=== PATIENT | male | born 1955 | race Caucasian/White ===

== ENCOUNTER 2021-10-09 12:22 | Outpatient (CLI) | payer OTHER, MEDICARE, SELFPAY | END 2021-10-09 12:23 | disposition home or self-care (01) | LOC: CHSLAB 12:28 | PROVIDERS: PCP Family Medicine; Visit Provider Specialist | DX: L57.0 Actinic keratosis (principal) | CPT/HCPCS: 88305 ==

== ENCOUNTER → 2023-01-21 07:36 | Outpatient (CLI) | payer OTHER, MEDICARE, SELFPAY ==
--- NOTE | ~2023-01-21 | MR_ITS ---
EXAMINATION: MR lumbar spine wo con DATE: 01/21/2023 08:25 INDICATION: Low back pain TECHNIQUE: Magnetic resonance imaging (MRI) of the lumbar spine was performed without intravenous con trast. Sequences included sagittal T2-weighted FSE, sagittal T2-weighted FS FSE, sagittal T1-weighted FSE, and axial T2-weighted FSE. COMPARISON: None FINDINGS: Measures string of the normal lumbar lordosis. Alignment is otherwise normal. Vertebral body heights are normal. Mild fibrovascular degenerative endplate changes along the anterior superior endplate of T12. A couple T1 hyperintense hemangiomas at L2. Marrow signal is otherwise normal. Mild disc height loss at L4-L5. Annular fissures at L4-L5 and L5-S1. The conus medullaris terminates at L1. There is n ormal signal in the caudal spinal cord. Paravertebral soft tissues are unremarkable. The following di sc levels are specifically discussed: T12-L1: The disc does not extend beyond the endplate margin. There is mild bilateral facet joint oste oarthritis. There is no neural foraminal stenosis. There is no central canal stenosis. L1-L2: Disc is mildly bulging. There is moderate bilateral facet joint osteoarthritis. There is mild bilateral neural foraminal stenosis. There is minimal central canal stenosis. L2-L3: Small disc protrusions at the bilateral foraminal zones, left more prominent than right There is mild bilateral facet joint osteoarthritis. There is mild bilateral, left greater than right neural foraminal stenosis. There is minimal central canal stenosis. L3-L4: Disc is mildly bulging. There is mild to moderate bilateral facet joint osteoarthritis. There is moderate bilateral neural foraminal stenosis. There is mild central canal stenosis. L4-L5: Disc is bulging with annular fissure. There is mild to moderate bilateral facet joint osteoart hritis. There is moderate bilateral neural foraminal stenosis. There is mild central canal stenosis. L5-S1: Disc is bulging with annular fissure. There is moderate bilateral facet joint osteoarthritis. There is moderate bilateral neural foraminal stenosis. There is mild central canal stenosis. IMPRESSION: 1. Mild lumbar spondylosis. Reviewed, dictated and finalized at location LNahid IMPRESSION: 1. Mild lumbar spondylosis.
== END ==
PROVIDERS: PCP Family Medicine; Visit Provider Family Medicine
DX: M47.896 Other spondylosis, lumbar region (principal)
CPT/HCPCS: 72148